=== PATIENT | female | born 1950 | race Caucasian/White ===

== ENCOUNTER 2021-06-08 11:06 | Emergency (ER) | payer OTHER, MEDICAID, SELFPAY ==
[~2021-06-08] VITALS: Ht 177.8 cm; Wt 72.6 kg
--- NOTE | 2021-06-08 11:06 | NUR ---
Dr. Alberto at bedside to assess.
--- NOTE | 2021-06-08 11:06 | NUR ---
Pt to bed 5 for evaluation.
[2021-06-08 11:07] VITALS: BP_SYST 159
--- NOTE | 2021-06-08 11:07 | NUR ---
Pt AAO X 3 and BIB ambulance for suicidal ideation X 1 day. Pt reports that she made suicidal statement like "she wishes she was ." Pt denies having any plan. Pt speaks very loudly due to hearing loss but she is currently coopertive and nonaggressive. Pt has history of HTN, COPD, hypothyroid, osteoporosis, dementia, and peptic ulcer. Pt reports right shoulder pain 3/10 and denies any trauma or injury.
[2021-06-08] MEDS ORDERED: LEVO100T PO (11:42)
[2021-06-08] MEDS ORDERED: SENN-278 PO (11:42)
[2021-06-08] MEDS ORDERED: LIP10 PO (11:42)
[2021-06-08] MEDS ORDERED: AMAN100C16 PO (11:42)
[2021-06-08] MEDS ORDERED: METO-442 PO (11:42)
[2021-06-08] MEDS ORDERED: ASA81 PO (11:42)
[2021-06-08] MEDS ORDERED: PROXL60 PO (11:42)
[2021-06-08] MEDS ORDERED: OLAN2.5T3 PO (11:42)
[2021-06-08 11:48] LABS: ANION GAP 12 (5-15); CALCIUM 9.9 mg/dL (8.4-11.0); CHLORIDE 105 mmol/L (98-107); CREATININE 0.82 mg/dL (0.55-1.30); GLUCOSE 107 mg/dL (70-99); POTASSIUM 3.8 mmol/L (3.5-5.1); SODIUM SERUM 137 mmol/L (136-145); UREA NITROGEN, BLOOD 23 mg/dL (8-21)
[2021-06-08 11:49] LABS: BASOPHILS % (AUTO) 0.7 % (0.0-2.0); EOSINOPHILS # (AUTO) 0.4 K/uL (0.0-0.4); EOSINOPHILS % (AUTO) 5.7 % (0.0-4.0); HEMATOCRIT 43.6 % (36-48); HEMOGLOBIN 14.7 g/dL (12.0-16.0); LYMPHOCYTES # (AUTO) 1.7 K/uL (1.0-5.5); LYMPHOCYTES % (AUTO) 26.5 % (20.5-51.5); MEAN CORPUSCULAR HEMOGLOBIN 29 pg (27-31); MEAN CORPUSCULAR HGB CONC 34 % (32-36); MEAN CORPUSCULAR VOLUME 84 fL (79.0-98.0); MONOCYTES # (AUTO) 0.7 K/uL (0.0-1.0); MONOCYTES % (AUTO) 11.3 % (1.7-9.3); NEUTROPHILS # (AUTO) 3.5 K/uL (1.8-7.7); NEUTROPHILS % (AUTO) 55.8 % (40.0-70.0); PLATELET COUNT (AUTO) 255 K/uL (130-430); RED BLOOD CELL COUNT(AUTO) 5.18 MIL/uL (4.2-6.2); RED CELL DISTRIBUTION WIDTH 16.4 % (9.0-15.0); WHITE BLOOD COUNT (AUTO) 6.2 K/uL (4.8-10.8)
[2021-06-08 11:53] LABS: ALANINE AMINOTRANSFERASE 43 U/L (12-78); ALBUMIN 3.5 g/dL (3.4-4.8); ASPARTATE AMINOTRANSFERASE 17 U/L (10-37); TOTAL BILIRUBIN 0.4 mg/dL (0.0-1.0)
[2021-06-08 11:56] LABS: ACETAMINOPHEN < 1 ug/mL (1-30); ALCOHOL, BLOOD < 3 mg/dL (<10)
--- NOTE | 2021-06-08 12:05 | NUR ---
pt. unable to void on bedpan, in/out cath. done, urine cloudy with foul odor
[2021-06-08 12:11] LABS: CHOLESTEROL 148 mg/dL (<200); HDL CHOLESTEROL 36 mg/dL (>55); LDL CHOLESTEROL 80 mg/dL (<100); TRIGLYCERIDES 256 mg/dL (30-150)
[2021-06-08 12:46] LABS: BILIRUBIN,URINE NEGATIVE (NEGATIVE); BLOOD, URINE 2+ (NEGATIVE); COLOR,URINE YELLOW (YELLOW); GLUCOSE,URINE NEGATIVE (NEGATIVE); KETONES,URINE NEGATIVE (NEGATIVE); LEUKOCYTE ESTERASE ,URINE 3+ (NEGATIVE); NITRITE, URINE POSITIVE (NEGATIVE); PH,URINE 6.5 (5.0-8.0); PROTEIN URINE NEGATIVE (NEGATIVE); UROBILINOGEN,URINE 0.2 (0.2-1.0)
[2021-06-08 12:51] LABS: CLARITY/URINE HAZY (CLEAR)
[2021-06-08 12:59] LABS: BARBITURATE, URINE NEGATIVE (NEG <=200); BENZODIAZEPINE, URINE NEGATIVE (NEG <=150); CANNABINOID, URINE NEGATIVE (NEG <=50); COCAINE, URINE NEGATIVE (NEG <=150); METHAMPHETAMINES SCREEN,URINE NEGATIVE (NEG <=500); OPIATE, URINE NEGATIVE (NEG <=100); PHENCYCLIDINE SCREEN,URINE NEGATIVE (NEG <=25); UR TRICYCLIC ANTIDEPRESSANTS NEGATIVE (NEG <=300); URINE AMPHETAMINE NEGATIVE (NEG <=500); URINE METHADONE NEGATIVE (NEG <=200); URINE OXYCODONE SCREEN NEGATIVE (NEG <=100); URINE PROPOXYPHENE SCREEN NEGATIVE (NEG <=300)
[2021-06-08] MEDS ORDERED: CEPH-548 PO ×2 (13:09→13:11)
[2021-06-08 13:12] LABS: BACTERIA,URINE MANY /HPF (None Seen); WBC,URINE 20-50 /HPF (0-3)
[2021-06-08] MEDS ORDERED: cephALEXin 500 MG CAPSULE PO ONE (13:15)
--- NOTE | 2021-06-08 14:05 | NUR ---
report given to Jayda Miranda
[2021-06-08 16:07] VITALS: BP_SYST 159
--- NOTE | 2021-06-08 16:09 | NUR ---
Patient/Jayda RN at [facility] given written and verbal discharge instructions and verbalizes understanding. Patient in stable condition. Rx of Keflex given. Pain Scale 0. Opportunity for questions provided and answered. Medication side effect fact sheet provided. Pt. discharged and taken to [facility] by BLS transport to room 56D and Dr. Simon and Dr. Diggs acepting care.
== END 2021-06-08 16:09 ==
LOC: SED 11:06
DX: F32.9 Major depressive disorder, single episode, unspecified (principal); F20.9 Schizophrenia, unspecified; R45.851 Suicidal ideations; N39.0 Urinary tract infection, site not specified; J44.9 Chronic obstructive pulmonary disease, unspecified; Z88.8 Allergy status to other drugs, medicaments and biological substances; Z79.899 Other long term (current) drug therapy; Z20.822 Contact with and (suspected) exposure to COVID-19
CPT/HCPCS: 36415; 80053; 80061; 80307; 81000; 83036; 85025; 87081; 87086; 87426; 93005; 99285; G0480; G0481; G0482

== ENCOUNTER 2023-08-01 13:36 | Inpatient (IN) | payer OTHER, MEDICAID ==
[~2023-08-01] VITALS: Ht 177.8 cm; Wt 69.4 kg
[~2023-08-01 13:36] MED LIST: AMAN100C19 PO; ASA81 PO; CEPH-548 PO; LEVO100T PO; LIP10 PO; METO-442 PO; NIFE-129 PO; OLAN2.5T3 PO; SENN-278 PO
[2023-08-01 13:40] VITALS: BP_SYST 107; PULSE 74; RESP 19; TEMP 98; O2SAT 99
[2023-08-01] MEDS: NACL 0.9% 1,000 ML IV ONE (14:47)
[2023-08-01] MEDS ORDERED: OLANZapine 5 MG TAB.RAPDIS PO ONE (15:00)
[2023-08-01 15:16] LABS: BASOPHILS # (AUTO) 0.1 K/uL (0.0-0.2); BASOPHILS % (AUTO) 0.7 % (0.0-2.0); EOSINOPHILS # (AUTO) 0.2 K/uL (0.0-0.4); EOSINOPHILS % (AUTO) 2.4 % (0.0-4.0); LYMPHOCYTES # (AUTO) 1.3 K/uL (1.0-5.5); LYMPHOCYTES % (AUTO) 16.4 % (20.5-51.5); MEAN CORPUSCULAR HEMOGLOBIN 29 pg (27-31); MEAN CORPUSCULAR HGB CONC 33 % (32-36); MEAN CORPUSCULAR VOLUME 86 fL (79.0-98.0); MONOCYTES % (AUTO) 12.9 % (1.7-9.3); NEUTROPHILS # (AUTO) 5.3 K/uL (1.8-7.7); NEUTROPHILS % (AUTO) 67.6 % (40.0-70.0); PLATELET COUNT (AUTO) 433 K/uL (130-430); RED BLOOD CELL COUNT(AUTO) 4.53 MIL/uL (4.2-6.2); RED CELL DISTRIBUTION WIDTH 14.4 % (9.0-15.0); WHITE BLOOD COUNT (AUTO) 7.8 K/uL (4.8-10.8)
[2023-08-01 15:18] LABS: ANION GAP 12 (5-15); CALCIUM 9.9 mg/dL (8.4-11.0); CARBON DIOXIDE 21 mmol/L (23-29); CHLORIDE 106 mmol/L (98-107); CREATININE 1.07 mg/dL (0.55-1.30); GLUCOSE 119 mg/dL (74-106); POTASSIUM 3.9 mmol/L (3.5-5.1); SODIUM SERUM 139 mmol/L (136-145); UREA NITROGEN, BLOOD 21 mg/dL (8-21)
[2023-08-01 15:26] LABS: ALANINE AMINOTRANSFERASE 18 U/L (12-78); ALBUMIN 3.1 g/dL (3.4-4.8); ASPARTATE AMINOTRANSFERASE 10 U/L (10-37); LIPASE 45 U/L (16-77); PHOSPHORUS 3.1 mg/dL (2.7-4.5); TOTAL BILIRUBIN 0.2 mg/dL (0.0-1.0); TOTAL PROTEIN, SERUM 9.1 g/dL (6.4-8.3)
[2023-08-01 16:49] LABS: BILIRUBIN,URINE NEGATIVE (NEGATIVE); BLOOD, URINE 3+ (NEGATIVE); COLOR,URINE YELLOW (YELLOW); GLUCOSE,URINE NEGATIVE (NEGATIVE); KETONES,URINE NEGATIVE (NEGATIVE); LEUKOCYTE ESTERASE ,URINE 3+ (NEGATIVE); NITRITE, URINE NEGATIVE (NEGATIVE); PROTEIN URINE 2+ (NEGATIVE); UROBILINOGEN,URINE 0.2 (0.2-1.0)
[2023-08-01 16:51] LABS: CLARITY/URINE HAZY (CLEAR)
[2023-08-01] MEDS: OLANZapine 5 MG TABLET PO ONE (16:51)
[2023-08-01 16:58] LABS: BACTERIA,URINE MODERATE /HPF (None Seen); RBC,URINE 20-50 /HPF (0-3); WBC,URINE 20-50 /HPF (0-3)
[2023-08-01] MEDS ORDERED: SENN8.6T19 PO (17:11)
[2023-08-01] MEDS ORDERED: VITD2000 PO (17:11)
[2023-08-01] MEDS ORDERED: ASPI-1393 PO (17:11)
[2023-08-01] MEDS ORDERED: OLAN2.5T3 PO (17:11)
[2023-08-01] MEDS ORDERED: NIFE-129 PO (17:11)
[2023-08-01] MEDS ORDERED: METO25TA6 PO (17:11)
[2023-08-01] MEDS ORDERED: SERT-436 PO (17:11)
[2023-08-01] MEDS ORDERED: SODI650T PO (17:11)
[2023-08-01] MEDS: HALOPERIDOL LACTATE 5 MG/ML VIAL IM ONE (17:53)
[2023-08-01] MEDS ORDERED: NALOXONE HCL 0.4 MG/ML AMP (NARCAN) IVP PRN ×2 (22:45)
[2023-08-01] MEDS ORDERED: ONDANSETRON HCL 4 MG/2 ML VIAL IVP PRN (22:45)
[2023-08-01] MEDS ORDERED: HYDROcodone/ACETAMIN 5-325 MG TAB (NORCO/ VICODIN) PO PRN (22:45)
[2023-08-01] MEDS ORDERED: ACETAMINOPHEN 325 MG TABLET PO PRN (22:45)
[2023-08-01] MEDS ORDERED: HYDROcodone/ACETAMIN 10-325 MG TAB PO PRN (22:45)
[2023-08-02 05:35] LABS: ANION GAP 9 (5-15); CALCIUM 9.8 mg/dL (8.4-11.0); CARBON DIOXIDE 24 mmol/L (23-29); CHLORIDE 105 mmol/L (98-107); CREATININE 0.98 mg/dL (0.55-1.30); GLUCOSE 88 mg/dL (74-106); POTASSIUM 3.5 mmol/L (3.5-5.1); SODIUM SERUM 138 mmol/L (136-145); UREA NITROGEN, BLOOD 18 mg/dL (8-21)
[2023-08-02] MEDS: NORMAL SALINE 5 ML DISP.SYRIN IVF SCH (06:00)
[2023-08-02 07:33] LABS: BASOPHILS % (AUTO) 0.6 % (0.0-2.0); EOSINOPHILS # (AUTO) 0.1 K/uL (0.0-0.4); EOSINOPHILS % (AUTO) 2.4 % (0.0-4.0); HEMATOCRIT 36.6 % (36-48); HEMOGLOBIN 12.2 g/dL (12.0-16.0); LYMPHOCYTES # (AUTO) 1.3 K/uL (1.0-5.5); LYMPHOCYTES % (AUTO) 21.9 % (20.5-51.5); MEAN CORPUSCULAR HEMOGLOBIN 29 pg (27-31); MEAN CORPUSCULAR HGB CONC 33 % (32-36); MEAN CORPUSCULAR VOLUME 86 fL (79.0-98.0); MONOCYTES # (AUTO) 0.8 K/uL (0.0-1.0); NEUTROPHILS # (AUTO) 3.8 K/uL (1.8-7.7); NEUTROPHILS % (AUTO) 62.1 % (40.0-70.0); PLATELET COUNT (AUTO) 374 K/uL (130-430); RED BLOOD CELL COUNT(AUTO) 4.25 MIL/uL (4.2-6.2); RED CELL DISTRIBUTION WIDTH 14.5 % (9.0-15.0); WHITE BLOOD COUNT (AUTO) 6.1 K/uL (4.8-10.8)
[2023-08-02] MEDS: CHOLECALCIFEROL (VITAMIN D3) 2,000 UNIT TABLET PO SCH (09:00)
[2023-08-02] MEDS ORDERED: cephALEXin 500 MG CAPSULE PO SCH (09:00)
[2023-08-02] MEDS: LEVOTHYROXINE SODIUM 0.1 MG TABLET PO SCH (10:00)
[2023-08-02] MEDS: ASPIRIN 81 MG TABLET(ECOTRIN) PO SCH (10:06)
[2023-08-02] MEDS: NIFEdipine 30 MG TAB.ER.24 PO SCH (10:06)
[2023-08-02] MEDS: METOPROLOL TARTRATE 25 MG TABLET PO SCH (10:06)
[2023-08-02] MEDS: SODIUM BICARBONATE 650 MG TABLET PO SCH (10:07)
[2023-08-02] MEDS: SERTRALINE HCL 50 MG TABLET PO SCH (10:07)
[2023-08-02] MEDS ORDERED: CHOL500013 PO (11:32)
[2023-08-02] MEDS ORDERED: NIFE-75 PO (11:32)
[2023-08-02] MEDS ORDERED: ASCO500T20 PO (11:32)
[2023-08-02 12:18] VITALS: BP_SYST 138; PULSE 62; RESP 16; TEMP 98.2; O2SAT 97
[2023-08-02 12:45] VITALS: BP_SYST 138; PULSE 75; RESP 17; TEMP 97.1; O2SAT 97
[2023-08-02] MEDS ORDERED: NIFEdipine 30 MG TAB.ER.24 PO SCH (12:46)
[2023-08-02 16:30] VITALS: BP_SYST 138; PULSE 72; RESP 16; TEMP 97.4; O2SAT 96
[2023-08-02 20:00] VITALS: BP_SYST 130; PULSE 88; RESP 18; TEMP 98.5; O2SAT 94
[2023-08-02] MEDS: ATORVASTATIN 10 MG TABLET PO SCH (21:25)
[2023-08-02] MEDS: SENNOSIDES 8.6 MG TABLET PO SCH (21:32)
[2023-08-02] MEDS: MIRTAZAPINE 15 MG TABLET PO SCH (21:35)
[2023-08-03 00:04] VITALS: BP_SYST 132; PULSE 73; RESP 18; TEMP 98.1
[2023-08-03 05:59] LABS: BASOPHILS % (AUTO) 0.5 % (0.0-2.0); EOSINOPHILS # (AUTO) 0.2 K/uL (0.0-0.4); EOSINOPHILS % (AUTO) 2.7 % (0.0-4.0); HEMATOCRIT 43.7 % (36-48); HEMOGLOBIN 14.6 g/dL (12.0-16.0); LYMPHOCYTES # (AUTO) 1.5 K/uL (1.0-5.5); LYMPHOCYTES % (AUTO) 18.3 % (20.5-51.5); MEAN CORPUSCULAR HEMOGLOBIN 29 pg (27-31); MEAN CORPUSCULAR HGB CONC 33 % (32-36); MEAN CORPUSCULAR VOLUME 86 fL (79.0-98.0); MONOCYTES # (AUTO) 0.9 K/uL (0.0-1.0); MONOCYTES % (AUTO) 10.7 % (1.7-9.3); NEUTROPHILS # (AUTO) 5.7 K/uL (1.8-7.7); NEUTROPHILS % (AUTO) 67.8 % (40.0-70.0); PLATELET COUNT (AUTO) 431 K/uL (130-430); RED BLOOD CELL COUNT(AUTO) 5.11 MIL/uL (4.2-6.2); RED CELL DISTRIBUTION WIDTH 14.7 % (9.0-15.0); WHITE BLOOD COUNT (AUTO) 8.4 K/uL (4.8-10.8)
[2023-08-03 06:30] LABS: ALANINE AMINOTRANSFERASE 22 U/L (12-78); ALBUMIN 3.4 g/dL (3.4-4.8); ANION GAP 13 (5-15); ASPARTATE AMINOTRANSFERASE 10 U/L (10-37); CALCIUM 10.9 mg/dL (8.4-11.0); CARBON DIOXIDE 25 mmol/L (23-29); CHLORIDE 103 mmol/L (98-107); CREATININE 0.99 mg/dL (0.55-1.30); GLUCOSE 89 mg/dL (74-106); POTASSIUM 3.8 mmol/L (3.5-5.1); SODIUM SERUM 141 mmol/L (136-145); TOTAL BILIRUBIN 0.2 mg/dL (0.0-1.0); UREA NITROGEN, BLOOD 23 mg/dL (8-21)
[2023-08-03 07:42] LABS: ERYTHROCYTE SEDIMENTATION RATE 83 MM/HR (0-20)
[2023-08-03 08:00] VITALS: BP_SYST 132; PULSE 79; RESP 18; TEMP 98.2; O2SAT 96
[2023-08-03] MEDS: NIFEdipine 30 MG TAB.ER.24 PO SCH (09:00)
[2023-08-03 12:00] VITALS: BP_SYST 130; PULSE 79; RESP 18; TEMP 98.1; O2SAT 96
[2023-08-03 16:00] VITALS: BP_SYST 127; PULSE 77; RESP 18; TEMP 98.3; O2SAT 96
[2023-08-03] MEDS: OLANZapine 2.5 MG TABLET PO SCH (21:00)
[2023-08-04 00:13] VITALS: BP_SYST 136; PULSE 74; RESP 18; TEMP 97.5; O2SAT 93
[2023-08-04 04:21] VITALS: BP_SYST 136; PULSE 74; RESP 18; TEMP 97.5; O2SAT 93
[2023-08-04 06:57] LABS: BASOPHILS % (AUTO) 0.6 % (0.0-2.0); EOSINOPHILS # (AUTO) 0.3 K/uL (0.0-0.4); EOSINOPHILS % (AUTO) 4.2 % (0.0-4.0); HEMATOCRIT 40.6 % (36-48); HEMOGLOBIN 13.7 g/dL (12.0-16.0); LYMPHOCYTES # (AUTO) 1.6 K/uL (1.0-5.5); LYMPHOCYTES % (AUTO) 24.5 % (20.5-51.5); MEAN CORPUSCULAR HEMOGLOBIN 29 pg (27-31); MEAN CORPUSCULAR HGB CONC 34 % (32-36); MEAN CORPUSCULAR VOLUME 85 fL (79.0-98.0); MONOCYTES # (AUTO) 0.9 K/uL (0.0-1.0); MONOCYTES % (AUTO) 12.8 % (1.7-9.3); NEUTROPHILS # (AUTO) 3.9 K/uL (1.8-7.7); NEUTROPHILS % (AUTO) 57.9 % (40.0-70.0); PLATELET COUNT (AUTO) 355 K/uL (130-430); RED BLOOD CELL COUNT(AUTO) 4.76 MIL/uL (4.2-6.2); RED CELL DISTRIBUTION WIDTH 14.6 % (9.0-15.0); WHITE BLOOD COUNT (AUTO) 6.7 K/uL (4.8-10.8)
[2023-08-04 06:58] VITALS: BP_SYST 149; PULSE 79; RESP 18; O2SAT 94
[2023-08-04 07:20] LABS: ANION GAP 12 (5-15); CARBON DIOXIDE 22 mmol/L (23-29); CHLORIDE 107 mmol/L (98-107); CREATININE 1.07 mg/dL (0.55-1.30); GLUCOSE 80 mg/dL (74-106); SODIUM SERUM 141 mmol/L (136-145); UREA NITROGEN, BLOOD 25 mg/dL (8-21)
[2023-08-04 08:29] VITALS: BP_SYST 128; PULSE 66; RESP 16; TEMP 95; O2SAT 92
[2023-08-04 09:51] VITALS: BP_SYST 128; PULSE 66; RESP 16; TEMP 98
[2023-08-05] MEDS ORDERED: OLANZapine 2.5 MG TABLET PO SCH (21:00)
== END 2023-08-04 10:00 | DRG 641 ==
LOC: SED 13:36 → SMU 16:31
PROVIDERS: ADMIT Preventive Medicine Preventive Medicine/Occupational Environmental Medicine; ATTEND Preventive Medicine Preventive Medicine/Occupational Environmental Medicine
DX: E86.0 Dehydration (principal); N39.0 Urinary tract infection, site not specified; R62.7 Adult failure to thrive; E03.9 Hypothyroidism, unspecified; E78.5 Hyperlipidemia, unspecified; I10 Essential (primary) hypertension; K59.00 Constipation, unspecified; E55.9 Vitamin D deficiency, unspecified; F41.9 Anxiety disorder, unspecified; D75.839 Thrombocytosis, unspecified; G30.9 Alzheimer's disease, unspecified; R79.89 Other specified abnormal findings of blood chemistry; F02.80 Dementia in other diseases classified elsewhere, unspecified severity, without behavioral disturbance, psychotic disturbance, mood disturbance, and anxiety; J44.9 Chronic obstructive pulmonary disease, unspecified; F32.A Depression, unspecified; F20.9 Schizophrenia, unspecified; Z79.82 Long term (current) use of aspirin; Z79.899 Other long term (current) drug therapy
CPT/HCPCS: 36415; 80048; 80053; 81000; 81001; 81015; 83690; 83735; 84100; 85025; 85651; 87081; 87086; 99285; J1630